=== PATIENT | male | born 1935 | race Caucasian/White ===

== ENCOUNTER 2021-01-16 00:48 | Observation (INO) ==
[2021-01-16] MEDS ORDERED: Acetaminophen 325 MG TABLET PO PRN (01:59)
[2021-01-16] MEDS ORDERED: Naloxone 0.4 MG/ML INJ IVP PRN (01:59)
[2021-01-16] MEDS ORDERED: Ondansetron 4 MG/2 ML VIAL IVP PRN (01:59)
[2021-01-16 04:53] LABS: Basophils % 0.6 %; Eosinophils % 0.6 %; Hemoglobin 8.4 g/dL (12.9-16.9); Immature Granulocytes % 0.5 % (0-4); Lymphocytes # 0.9 K/mcL (0.6-4.6); Lymphocytes % 13.8 %; Mean Corpuscular Hemoglobin 22.2 pg (28.0-33.3); Mean Corpuscular Volume 76.7 fL (83.0-100.0); Mean Platelet Volume 9.2 fL (9.4-12.4); Monocytes # 0.9 K/mcL (0.0-1.3); Monocytes % 14.2 %; Neutrophils # 4.5 K/mcL (1.6-8.9); Platelet Count 158 K/mcL (140-400); Red Blood Count 3.78 M/mcL (4.19-5.50); Red Cell Distribution Width 22.4 % (11.5-14.5); Segmented Neutrophils % 70.3 %; White Blood Count 6.4 K/mcL (4.3-11.1)
[2021-01-16 05:09] LABS: BUN/Creatinine Ratio 21 (6-26); Blood Urea Nitrogen 22 mg/dL (8-23); Calcium 8.7 mg/dL (8.6-10.3); Carbon Dioxide 26 mEq/L (23-29); Chloride 104 mEq/L (98-107); Glucose 90 mg/dL (70-105); Magnesium 1.7 mg/dL (1.6-2.6); Osmolality,Calculated 291 (280-300); Potassium 3.5 mEq/L (3.5-5.1); Sodium 139 mEq/L (136-145); eGFR For African Americans > 60 (> 60); eGFR For Non-African Americans > 60 (> 60)
[2021-01-16] MEDS: Folic Acid 1 MG TABLET PO SCH (08:21)
[2021-01-16] MEDS: Apixaban 5 MG TABLET PO SCH ×2 (08:22→22:07)
[2021-01-16] MEDS: Furosemide 40 MG TABLET PO SCH (08:22)
[2021-01-16] MEDS: Furosemide 40 MG/4 ML VIAL IVP SCH (17:21)
[2021-01-16] MEDS ORDERED: Furosemide 40 MG TABLET PO SCH (18:00)
[2021-01-16] MEDS ORDERED: Melatonin 3 MG TABLET PO SCH (21:00)
[2021-01-17] MEDS: Folic Acid 1 MG TABLET PO SCH (10:19)
[2021-01-17] MEDS: Apixaban 5 MG TABLET PO SCH (10:19)
[2021-01-17] MEDS: Furosemide 40 MG TABLET PO SCH (10:20)
[2021-01-17] MEDS: Furosemide 40 MG/4 ML VIAL IVP SCH (10:20)
[2021-01-17 11:33] VITALS: BP 106/62
== END 2021-01-17 16:19 | disposition other institution (70) ==
LOC: INPGRE → SUATTDRO 00:48
PROVIDERS: ADMIT Student in an Organized Health Care Education/Training Program; ATTEND Family Medicine

== ENCOUNTER 2021-01-17 16:31 | Inpatient (IN) ==
[2021-01-17] MEDS ORDERED: Acetaminophen 325 MG TABLET PO PRN (18:43)
[2021-01-17] MEDS ORDERED: Ondansetron 4 MG/2 ML VIAL IVP PRN (18:52)
[2021-01-17 19:10] LABS: Basophils % 0.3 %; Eosinophils # 0.1 K/mcL (0.0-0.6); Eosinophils % 1.5 %; Hematocrit 31.4 % (37.5-50.1); Hemoglobin 8.9 g/dL (12.9-16.9); Immature Granulocytes % 0.2 % (0-4); Lymphocytes # 0.9 K/mcL (0.6-4.6); Lymphocytes % 14.9 %; Mean Corpuscular HGB Conc 28.3 g/dL (31.6-35.5); Mean Corpuscular Hemoglobin 22.3 pg (28.0-33.3); Mean Corpuscular Volume 78.5 fL (83.0-100.0); Mean Platelet Volume 9.4 fL (9.4-12.4); Monocytes # 0.9 K/mcL (0.0-1.3); Monocytes % 15.6 %; Neutrophils # 3.9 K/mcL (1.6-8.9); Platelet Count 163 K/mcL (140-400); Red Cell Distribution Width 22.6 % (11.5-14.5); Segmented Neutrophils % 67.5 %; White Blood Count 5.8 K/mcL (4.3-11.1)
[2021-01-17 19:23] LABS: Burr Cells 1+ (Not Present); Hypochromasia Present (Not Present); Platelet Estimate Normal (Normal); Poikilocytosis 1+ (Not Present); Target Cells 1+ (Not Present)
[2021-01-17 19:27] LABS: BUN/Creatinine Ratio 23 (6-26); Blood Urea Nitrogen 26 mg/dL (8-23); Calcium 8.6 mg/dL (8.6-10.3); Carbon Dioxide 28 mEq/L (23-29); Chloride 100 mEq/L (98-107); Glucose 116 mg/dL (70-105); Osmolality,Calculated 290 (280-300); Potassium 3.3 mEq/L (3.5-5.1); Sodium 137 mEq/L (136-145); eGFR For African Americans > 60 (> 60); eGFR For Non-African Americans > 60 (> 60)
[2021-01-17] MEDS: Apixaban 5 MG TABLET PO SCH (20:46)
[2021-01-17] MEDS: Melatonin 3 MG TABLET PO SCH (20:46)
[2021-01-17] MEDS: Triamcinolone Acet 0.1% CRM 15 GM TUBE TP SCH (20:55)
[2021-01-18] MEDS: Folic Acid 1 MG TABLET PO SCH (07:42)
[2021-01-18] MEDS: Furosemide 40 MG TABLET PO SCH ×2 (07:42→17:29)
[2021-01-18] MEDS: Metoprolol XL (24 HR) Succ 25 MG TAB.ER.24H PO SCH (07:42)
[2021-01-18] MEDS: Apixaban 5 MG TABLET PO SCH ×2 (07:42→20:43)
[2021-01-18] MEDS: Triamcinolone Acet 0.1% CRM 15 GM TUBE TP SCH ×4 (07:43→20:42)
[2021-01-18] MEDS: Melatonin 3 MG TABLET PO SCH (20:43)
[2021-01-19] MEDS: Metoprolol XL (24 HR) Succ 25 MG TAB.ER.24H PO SCH (09:09)
[2021-01-19] MEDS: Folic Acid 1 MG TABLET PO SCH (09:10)
[2021-01-19] MEDS: Apixaban 5 MG TABLET PO SCH ×2 (09:10→21:08)
[2021-01-19] MEDS: Furosemide 40 MG TABLET PO SCH ×2 (09:10→16:54)
[2021-01-19] MEDS: Triamcinolone Acet 0.1% CRM 15 GM TUBE TP SCH ×4 (09:11→21:13)
[2021-01-19] MEDS: Melatonin 3 MG TABLET PO SCH (21:08)
[2021-01-20] MEDS: Triamcinolone Acet 0.1% CRM 15 GM TUBE TP SCH ×4 (09:15→22:10)
[2021-01-20] MEDS: Apixaban 5 MG TABLET PO SCH ×2 (09:15→22:14)
[2021-01-20] MEDS: Folic Acid 1 MG TABLET PO SCH (09:15)
[2021-01-20] MEDS: Furosemide 40 MG TABLET PO SCH ×2 (09:15→17:26)
[2021-01-20] MEDS: Metoprolol XL (24 HR) Succ 25 MG TAB.ER.24H PO SCH (09:15)
[2021-01-20 15:25] LABS: BUN/Creatinine Ratio 22 (6-26); Blood Urea Nitrogen 23 mg/dL (8-23); Calcium 8.8 mg/dL (8.6-10.3); Carbon Dioxide 32 mEq/L (23-29); Chloride 102 mEq/L (98-107); Glucose 104 mg/dL (70-105); Osmolality,Calculated 294 (280-300); Sodium 140 mEq/L (136-145); eGFR For African Americans > 60 (> 60); eGFR For Non-African Americans > 60 (> 60)
[2021-01-20] MEDS: Melatonin 3 MG TABLET PO SCH (22:08)
[2021-01-20] MEDS ORDERED: Apixaban 2.5 MG TABLET PO ONE (22:15)
[2021-01-21] MEDS: Furosemide 40 MG TABLET PO SCH ×2 (09:03→17:25)
[2021-01-21] MEDS: Triamcinolone Acet 0.1% CRM 15 GM TUBE TP SCH ×4 (09:04→20:21)
[2021-01-21] MEDS: Metoprolol XL (24 HR) Succ 25 MG TAB.ER.24H PO SCH (09:04)
[2021-01-21] MEDS: Folic Acid 1 MG TABLET PO SCH (09:04)
[2021-01-21] MEDS: Apixaban 5 MG TABLET PO SCH ×2 (09:04→20:20)
[2021-01-21] MEDS: Melatonin 3 MG TABLET PO SCH (20:21)
[2021-01-22] MEDS: Folic Acid 1 MG TABLET PO SCH (08:32)
[2021-01-22] MEDS: Apixaban 5 MG TABLET PO SCH ×2 (08:32→21:28)
[2021-01-22] MEDS: Triamcinolone Acet 0.1% CRM 15 GM TUBE TP SCH ×4 (08:33→21:30)
[2021-01-22] MEDS: Furosemide 40 MG TABLET PO SCH ×2 (08:33→17:16)
[2021-01-22] MEDS: Metoprolol XL (24 HR) Succ 25 MG TAB.ER.24H PO SCH (08:33)
[2021-01-22] MEDS: Melatonin 3 MG TABLET PO SCH (21:29)
[2021-01-23 07:59] VITALS: BP 111/66
[2021-01-23] MEDS: Folic Acid 1 MG TABLET PO SCH (08:56)
[2021-01-23] MEDS: Metoprolol XL (24 HR) Succ 25 MG TAB.ER.24H PO SCH (08:56)
[2021-01-23] MEDS: Apixaban 5 MG TABLET PO SCH (08:56)
[2021-01-23] MEDS: Furosemide 40 MG TABLET PO SCH (08:56)
[2021-01-23] MEDS: Triamcinolone Acet 0.1% CRM 15 GM TUBE TP SCH ×2 (08:57→11:29)
== END 2021-01-23 17:27 | disposition home health service (06) | DRG 291 ==
LOC: INPGRE 16:58
PROVIDERS: ADMIT Family Medicine; ATTEND Family Medicine